=== PATIENT | male | born 1975 | race Caucasian/White ===

== ENCOUNTER 2018-03-04 00:32 | Emergency (ER) | payer MEDICAID ==
[~2018-03-04] VITALS: Ht 188 cm; Wt 105.0 kg
[2018-03-04] MEDS ORDERED: normal saline 1000ml 1,000 ML IV ONE (00:45)
[2018-03-04] MEDS ORDERED: ketorolac tromethamine 15mg/ml inj. IV ONE (00:45)
[2018-03-04] MEDS ORDERED: diphenhydrAMINE 50 mg/ml inj IV ONE (00:45)
[2018-03-04] MEDS ORDERED: proCHLORperazine 10 MG/2 ml inj IV ONE (00:45)
[2018-03-04 01:48] VITALS: BP 144/87
== END 2018-03-04 01:50 | disposition home or self-care (01) ==
LOC: ER 00:33
DX: G43.909 Migraine, unspecified, not intractable, without status migrainosus (principal); F15.10 Other stimulant abuse, uncomplicated; E66.9 Obesity, unspecified; F17.200 Nicotine dependence, unspecified, uncomplicated
CPT/HCPCS: 96374; 96375; 99283; J0780; J1200; J1885; J7030

== ENCOUNTER 2018-06-29 01:00 | Emergency (ER) | payer MEDICAID ==
[~2018-06-29] VITALS: Ht 188 cm; Wt 109.5 kg
[2018-06-29 01:05] VITALS: BP 148/91
[2018-06-29] MEDS ORDERED: CEPH500C5 PO (02:24)
== END 2018-06-29 02:37 | disposition home or self-care (01) ==
LOC: ER 01:01
DX: L03.113 Cellulitis of right upper limb (principal); F17.200 Nicotine dependence, unspecified, uncomplicated; F15.90 Other stimulant use, unspecified, uncomplicated; Z79.899 Other long term (current) drug therapy
CPT/HCPCS: 73130; 99283

== ENCOUNTER 2019-09-16 00:15 | Emergency (ER) | payer MEDICAID, OTHER ==
[~2019-09-16] VITALS: Ht 188 cm; Wt 97.8 kg
[2019-09-16] MEDS ORDERED: normal saline 1000ML IV soln IVB ONE (01:20)
[2019-09-16] MEDS ORDERED: iohexol 300mg/ml 100ml inj. ONE (01:41)
--- NOTE | 2019-09-16 02:04 | NUR ---
Pt is off the floor to CT
[2019-09-16 03:44] VITALS: BP 131/85
== END 2019-09-16 03:45 | disposition home or self-care (01) ==
LOC: ER 00:16
DX: S09.90XA Unspecified injury of head, initial encounter (principal); T14.8XXA Other injury of unspecified body region, initial encounter; S00.91XA Abrasion of unspecified part of head, initial encounter; F12.90 Cannabis use, unspecified, uncomplicated; F15.90 Other stimulant use, unspecified, uncomplicated; R51 Headache; V19.9XXA Pedal cyclist (driver) (passenger) injured in unspecified traffic accident, initial encounter; Y93.89 Activity, other specified; Y92.89 Other specified places as the place of occurrence of the external cause; Y99.8 Other external cause status
CPT/HCPCS: 72040; 73564; 74177; 99285; J7030; Q9967; 99284

== ENCOUNTER 2020-05-01 23:08 | Emergency (ER) | payer MEDICAID ==
[~2020-05-01] VITALS: Ht 188 cm; Wt 100.0 kg
[2020-05-02 00:31] LABS: BASOPHILS # (AUTO) 0.1 X10'3 (0-0.2); BASOPHILS % (AUTO) 0.7 % (0-1); EOSINOPHILS # (AUTO) 0.3 X10'3 (0-0.9); EOSINOPHILS % (AUTO) 3.3 % (0-6); HEMATOCRIT 41.6 % (42.0-52.0); HEMOGLOBIN 14.1 g/dl (14.0-17.9); LYMPHOCYTES # (AUTO) 2.3 X10'3 (1.1-4.8); LYMPHOCYTES % (AUTO) 26.6 % (21-51); MEAN CORPUSCULAR HGB CONC 33.8 g/dL (33.0-36.5); MEAN CORPUSCULAR VOLUME 88.8 FL (78-98); MEAN PLATELET VOLUME 6.7 FL (7.4-10.4); MONOCYTES # (AUTO) 0.8 X10'3 (0-0.9); MONOCYTES % (AUTO) 9.6 % (2-12); NEUTROPHILS # (AUTO) 5.2 X10'3 (1.8-7.7); NEUTROPHILS % (AUTO) 59.8 % (42-75); PLATELET COUNT 308 X10'3 (140-440); RED BLOOD COUNT 4.69 X10'6 (4.70-6.10); WHITE BLOOD COUNT 8.6 X10'3 (4.5-11.0)
[2020-05-02 00:41] LABS: ALANINE AMINOTRANSFERASE 37 U/L (12-78); ALBUMIN 3.5 G/DL (3.4-5.0); ALBUMIN/GLOBULIN RATIO 1.1 (1.1-1.5); ALKALINE PHOSPHATASE 67 IU/L (46-116); ANION GAP 7 (8-16); ASPARTATE AMINO TRANSFERASE 17 U/L (10-37); BILIRUBIN,TOTAL 0.3 MG/DL (0.1-1.0); BLOOD UREA NITROGEN 26 MG/DL (7-18); BUN/CREATININE RATIO 21.3 (5.4-32.0); CALCIUM 8.9 MG/DL (8.5-10.1); CHLORIDE 107 MMOL/L (99-107); CREATININE 1.22 MG/DL (0.60-1.10); GLUCOSE 133 MG/DL (70-104); POTASSIUM 4.2 MMOL/L (3.5-5.1); SODIUM 144 MMOL/L (135-145); TOTAL CARBON DIOXIDE 29.6 MMOL/L (24-32); TOTAL PROTEIN 6.6 G/DL (6.4-8.2); eGFR 65 ML/MIN
[2020-05-02] MEDS ORDERED: NO HOME MEDS (00:41)
--- NOTE | 2020-05-02 00:44 | NUR ---
The patient is a 54 year old male who presented to the ER with complaints of having increased paranoia and believes that people are after him and messing with him at his house. He also reported that hewas feeling suicidal without a plan. He is poorly groomed and appears disheveled. His affect is flat. He reports he is currently on no prescription medications but has been on Wellbutrin in the past and one other medication but he could not recall what it was. He denies ever being in a psychiatric hospital. He was moved to bed 26 in the ER overflow and has been very cooperative with staff requests. Snack given. The patient was made aware that he will be seen by [facility] in the morning.
[2020-05-02 00:50] LABS: ETHANOL < 0.010 GM/DL (0.0-0.010)
[2020-05-02] MEDS ORDERED: acetaminophen 325mg tablet PO ONE (00:55)
[2020-05-02] MEDS ORDERED: ketorolac trometh inj. 60 MG/2 ML VIAL IM ONE (00:55)
[2020-05-02] MEDS ORDERED: diphenhydrAMINE 25mg capsule PO ONE (00:55)
[2020-05-02 00:58] LABS: URINE AMPHETAMINE SCREEN POSITIVE (Neg); URINE BARBITUATE SCREEN NEGATIVE (Neg); URINE BENZODIAZEPINES SCREEN NEGATIVE (Neg); URINE CANNABINOID SCREEN NEGATIVE (Neg); URINE COCAINE SCREEN NEGATIVE (Neg); URINE METHADONE SCREEN NEGATIVE (Neg); URINE OPIATE SCREEN NEGATIVE (Neg); URINE PHENCYCLIDINE SCREEN NEGATIVE (Neg)
--- NOTE | 2020-05-02 01:14 | NUR ---
Packet sent to [facility]
--- NOTE | 2020-05-02 03:11 | NUR ---
The patient appears to be sleeping
--- NOTE | 2020-05-02 05:47 | NUR ---
The patient appears to be sleeping
[2020-05-02 06:00] VITALS: BP 126/67
--- NOTE | 2020-05-02 07:07 | NUR ---
Pt. sleeping on his left side, no distress noted. Will continue to monitor.
--- NOTE | 2020-05-02 10:01 | NUR ---
Pt. ate breakfast, now resting in his bed with no distress noted. Will continue to monitor.
== END 2020-05-02 10:25 | disposition home or self-care (01) ==
LOC: ER 23:09
DX: F22 Delusional disorders (principal); R51.9 Headache, unspecified; F41.9 Anxiety disorder, unspecified; F12.90 Cannabis use, unspecified, uncomplicated; F15.90 Other stimulant use, unspecified, uncomplicated
CPT/HCPCS: 36415; 80053; 80305; 80320; 84443; 85025; 96372; 99284; J1885; Q0163

== ENCOUNTER 2023-03-24 00:42 | Emergency (ER) | payer MEDICAID ==
[~2023-03-24] VITALS: Ht 188 cm; Wt 102.3 kg
[~2023-03-24 00:42] MED LIST: NO HOME MEDS
[2023-03-24 00:45] VITALS: BP 146/92; PULSE 90; TEMP 98; O2SAT 98
[2023-03-24 01:53] VITALS: RESP 18
[2023-03-24] MEDS: ondansetron 4mg rapidly disintigrating tab PO ONE (01:53)
[2023-03-24] MEDS: morphine 4 MG/ML inj SYRINge IV ONE (01:53)
[2023-03-24 02:51] LABS: ALANINE AMINOTRANSFERASE 36 U/L (12-78); ALBUMIN 3.8 G/DL (3.4-5.0); ALKALINE PHOSPHATASE 50 IU/L (46-116); ANION GAP 12 (8-16); ASPARTATE AMINO TRANSFERASE 15 U/L (10-37); BILIRUBIN,TOTAL 0.4 MG/DL (0.1-1.0); BLOOD UREA NITROGEN 20 MG/DL (7-18); BUN/CREATININE RATIO 21.3 (10.0-20.0); CHLORIDE 100 MMOL/L (99-107); CREATININE 0.94 MG/DL (0.60-1.10); GLUCOSE 83 MG/DL (70-104); POTASSIUM 3.8 MMOL/L (3.5-5.1); SODIUM 140 MMOL/L (135-145); TOTAL CARBON DIOXIDE 27.8 MMOL/L (24-32); TOTAL PROTEIN 7.6 G/DL (6.4-8.2); eCRCL 115 ML/MIN; eGFR 87 ML/MIN
[2023-03-24 03:10] LABS: BASOPHILS % (AUTO) 0.5 % (0-1); EOSINOPHILS # (AUTO) 0.4 X10'3 (0-0.9); EOSINOPHILS % (AUTO) 3.7 % (0-6); HEMATOCRIT 44.2 % (42.0-52.0); HEMOGLOBIN 15.3 g/dl (14.0-17.9); LYMPHOCYTES # (AUTO) 2.9 X10'3 (1.1-4.8); LYMPHOCYTES % (AUTO) 30.5 % (21-51); MEAN CORPUSCULAR HEMOGLOBIN 30.6 PG (27.0-31.0); MEAN CORPUSCULAR HGB CONC 34.7 g/dL (33.0-36.5); MEAN CORPUSCULAR VOLUME 88.1 FL (78-98); MEAN PLATELET VOLUME 6.8 FL (7.4-10.4); NEUTROPHILS # (AUTO) 5.3 X10'3 (1.8-7.7); NEUTROPHILS % (AUTO) 55.3 % (42-75); PLATELET COUNT 324 X10'3 (140-440); RED BLOOD COUNT 5.01 X10'6 (4.70-6.10); RED CELL DISTRIBUTION WIDTH 13.3 % (11.5-14.5); WHITE BLOOD COUNT 9.6 X10'3 (4.5-11.0)
[2023-03-24] MEDS ORDERED: HYDR-3965 PO (04:48)
== END 2023-03-24 05:11 | disposition home or self-care (01) ==
LOC: ER 00:43
DX: M54.2 Cervicalgia (principal); F12.90 Cannabis use, unspecified, uncomplicated; F15.90 Other stimulant use, unspecified, uncomplicated; Z79.899 Other long term (current) drug therapy
CPT/HCPCS: 36415; 70450; 80053; 85025; 96374; 99285; J2270